=== PATIENT | male | born 1955 | race Caucasian/White ===

== ENCOUNTER 2016-08-16 08:55 | Emergency (ER) | payer MEDICARE, MEDICAID ==
[~2016-08-16 08:55] MED LIST: ACYC400T PO; CALC600T44 PO; CELE40TA PO; CLON1 PO; GEOD80CA PO; OMEG5CAP PO; SIMV80TA PO; VITA400C58 PO
[2016-08-16 09:02] VITALS: BP 140/82; PULSE 99; RESP 20; TEMP 98.9; O2SAT 100
[2016-08-16] MEDS ORDERED: CLON1TAB PO (09:16)
[2016-08-16] MEDS ORDERED: MULT1TAB84 PO (09:16)
[2016-08-16] MEDS ORDERED: GEOD80CA PO (09:16)
[2016-08-16] MEDS ORDERED: ZOCO10TA PO (09:16)
[2016-08-16] MEDS ORDERED: CELE40TA PO (09:16)
[2016-08-16] MEDS ORDERED: BACT800T5 PO (09:25)
--- NOTE | 2016-08-16 09:29 | PD ---
HPI Chief Complaint: Edema Time Seen by Provider: 09:13 Travel History International Travel<30 days: No Contact w/Intl Traveler<30days: No Traveled to known affect area: No History of Present Illness HPI This patient complains of redness and swelling in his legs. Duration 4 days. Severity is moderate. No fever. No alleviating factors. PFSH Past Medical History Anxiety: Yes Depression: Yes (pt on medication and states no depression) Heart Rhythm Problems: No Cancer: Yes (lymphoma ) Cardiovascular Problems: Yes Chemotherapy: Yes (2015) Chest Pain: No Congestive Heart Failure: No Cerebrovascular Accident: No Diabetes: No Diminished Hearing: No Endocrine: No Gastrointestinal Disorders: Yes (DIARRHEA (HX ONLY)) Genitourinary: No Hepatitis: No Hypertension: Yes Immune Disorder: No Implanted Vascular Access Dvce: Yes Musculoskeletal: No Neurologic: No Psychiatric: No Reproductive: No Respiratory: No Immunizations Current: No Migraines: No Radiation Therapy: No Seizures: No Thyroid Disease: No Past Surgical History Abdominal Surgery: No AICD: No Arteriovenous Shunt: No Body Medical Devices: port placement Cardiac Surgery: No Endocrine Surgery: No Eye Surgery: No Genitourinary Surgery: No Gynecologic Surgery: Yes Insulin Pump: No Joint Replacement: No Oral Surgery: No Pacemaker: No Thoracic Surgery: No Other Surgery: Yes (lateral sphincterotomy (anal area), Port Placement ) Social History Alcohol Use: No (Hx : ETOH abuse, Recovering Alcoholic ) Tobacco Use: No (quit more than 5 years ago ) Substance Use: No (Hx : Marijuana ) Allergies-Medications (Allergen,Severity, Reaction): Coded Allergies: Augmentin (Unverified Allergy, Unknown, 08/16/16) Keflex (Unverified Allergy, Unknown, 08/16/16) Reported Meds & Prescriptions Reported Meds & Active Scripts Active Reported Multivitamin Adults (Multiple Vitamins W/ Minerals) 1 Tab 1 Tab PO DAILY Zocor (Simvastatin) 10 Mg Tab 10 Mg PO HS Clonazepam 1 Mg Tab 1 Mg PO BID Geodon (Ziprasidone) 80 Mg Cap 80 Mg PO HS Celexa (Citalopram Hydrobromide) 40 Mg Tab 40 Mg PO HS Review of Systems General / Constitutional: No: Fever HENT: No: Headaches Cardiovascular: No: Chest Pain or Discomfort Physical Exam Narrative GASTROINTESTINAL: Abdomen soft, non-tender, nondistended. Positive bowel sounds. No hepato-splenomegaly, or palpable masses. No guarding. Psych: Normal mood and affect. Normal insight and judgment. Legs: Has some macular erythema and warmth of the feet and lower legs. One area of the right leg is some scant yellow honey crusting. No fluctuance or drainage Data Data Last Documented VS Vital Signs Date Time Temp Pulse Resp B/P Pulse Ox O2 Delivery O2 Flow Rate FiO2 08/16/16 09:12 20 08/16/16 09:02 98.9 99 140/82 100 MDM Medical Decision Making Medical Screen Exam Complete: Yes Emergency Medical Condition: Yes Medical Record Reviewed: Yes Differential Diagnosis Cellulitis, DVT, abscess Narrative Course I have reviewed the patient's electronic medical record. Reviewed his last oncology follow-up. History of B-cell lymphoma in remission. I reviewed his labs from 2 weeks ago showing normal renal and liver functions Presentation seems most consistent with lower extremity cellulitis. He is normal vital signs, afebrile. We'll give him 10 days of Bactrim. If he gets no improvement or worsens in 48 hours she should return Diagnosis Primary Impression: Cellulitis, leg Qualified Code: L03.119 - Cellulitis of lower extremity, unspecified laterality Additional Instructions: The patient was advised to follow up with their physician and return if they worsen. Recheck in 48 hours if no improvement Med/Other Pt SpecificInfo: Prescription(s) given Scripts Sulfamethoxazole-Trimethoprim (Bactrim DS)800-160 Mg Tab1 Tab PO BID #20 TAB Ref 0 Prov:Juan Wing MD 08/16/16 Disposition: 01 DISCHARGE HOME Condition: Stable Juan Wing MD Aug 16, 2016 09:29
== END 2016-08-16 09:39 | disposition home or self-care (01) ==
LOC: PHED 08:55
DX: L03.119 Cellulitis of unspecified part of limb (principal)
CPT/HCPCS: 99283

== ENCOUNTER 2017-05-12 10:09 | Emergency (ER) | payer MEDICARE, MEDICAID ==
[~2017-05-12] VITALS: Ht 172.7 cm; Wt 97.0 kg
[~2017-05-12 10:09] MED LIST changes: -ACYC400T PO; +BACT800T5 PO; -CALC600T44 PO; -CLON1 PO; +CLON1TAB PO; +MULT1TAB84 PO; -OMEG5CAP PO; -SIMV80TA PO; -VITA400C58 PO; +ZOCO10TA PO
[2017-05-12 10:25] VITALS: BP 137/77; PULSE 88; RESP 16; TEMP 98.8; O2SAT 99
[2017-05-12] MEDS ORDERED: KETOC2%T TOPICAL (10:55)
--- NOTE | 2017-05-12 11:01 | PD ---
HPI Chief Complaint: Skin Problem Time Seen by Provider: 10:31 Travel History International Travel<30 days: No Contact w/Intl Traveler<30days: No Traveled to known affect area: No History of Present Illness HPI This patient complains of cellulitis in his legs. He has chronic swelling in his legs. He's had that for about a year. He seen his doctor for but has no idea what was discussed. In the past has been on Lasix for that. He denies acute injury or fever. Symptoms severity is mild. No alleviating factors. He also complains of a rash on his face PFSH Past Medical History Bipolar Disorder: Yes Anxiety: Yes Depression: Yes (pt on medication and states no depression) Heart Rhythm Problems: No Cancer: Yes (lymphoma ) Cardiovascular Problems: Yes Chemotherapy: Yes (2015) Chest Pain: No Congestive Heart Failure: No Cerebrovascular Accident: No Diabetes: No Diminished Hearing: No Endocrine: No Gastrointestinal Disorders: Yes (DIARRHEA (HX ONLY)) Genitourinary: No Hepatitis: No Hypertension: Yes Immune Disorder: No Implanted Vascular Access Dvce: Yes (port right chest wall) Musculoskeletal: No Neurologic: No Psychiatric: No Reproductive: No Respiratory: No Immunizations Current: No Migraines: No Radiation Therapy: No Seizures: No Thyroid Disease: No Influenza Vaccination: No Past Surgical History Abdominal Surgery: No AICD: No Arteriovenous Shunt: No Body Medical Devices: port placement Cardiac Surgery: No Endocrine Surgery: No Eye Surgery: No Genitourinary Surgery: Yes (vasectomy) Gynecologic Surgery: Yes Insulin Pump: No Joint Replacement: No Oral Surgery: No Pacemaker: No Thoracic Surgery: No Other Surgery: Yes (lateral sphincterotomy (anal area), Port Placement right chest) Social History Alcohol Use: No (Hx : ETOH abuse, Recovering Alcoholic ) Tobacco Use: No (quit) Substance Use: No (DENIES) Allergies-Medications (Allergen,Severity, Reaction): Coded Allergies: amoxicillin (Unverified Allergy, Unknown, 05/12/17) cephalexin (Unverified Allergy, Unknown, 05/12/17) clavulanic acid (Unverified Allergy, Unknown, 05/12/17) Reported Meds & Prescriptions Reported Meds & Active Scripts Active Nizoral Topical Shampoo (Ketoconazole) 2% Sham 1 Applic TOPICAL 2XWEEK Apply to scalp Bactrim DS (Sulfamethoxazole-Trimethoprim) 800-160 Mg Tab 1 Tab PO BID Reported Multivitamin Adults (Multiple Vitamins W/ Minerals) 1 Tab 1 Tab PO DAILY Zocor (Simvastatin) 10 Mg Tab 10 Mg PO HS Clonazepam 1 Mg Tab 1 Mg PO BID Geodon (Ziprasidone) 80 Mg Cap 80 Mg PO HS Celexa (Citalopram Hydrobromide) 40 Mg Tab 40 Mg PO HS Review of Systems General / Constitutional: No: Fever HENT: No: Headaches Cardiovascular: No: Chest Pain or Discomfort Physical Exam Narrative Face: Patient has a separate dermatitis rash across the T-zone of his face GASTROINTESTINAL: Abdomen soft, non-tender, nondistended. Positive bowel sounds. No hepato-splenomegaly, or palpable masses. No guarding. NECK: Symmetrical appearance, midline trachea. No mass or crepitus. Thyroid without enlargement, tenderness, or mass. Legs: Has some symmetric edema for the midshin down. Some hyperpigmentation stasis is present. No evidence of cellulitis. Data Data Last Documented VS Vital Signs Date Time Temp Pulse Resp B/P (MAP) Pulse Ox O2 Delivery O2 Flow Rate FiO2 05/12/17 10:25 98.8 88 16 137/77 (97) 99 MDM Medical Decision Making Medical Screen Exam Complete: Yes Emergency Medical Condition: Yes Medical Record Reviewed: Yes Differential Diagnosis Leg edema, cellulitis, dermatitis Narrative Course I have reviewed the patient's electronic medical record. Patient has chronic leg edema with some hyperpigmentation stasis but no cellulitis. He does not need antibiotics. He does have seborrheic dermatitis and I wrote him a prescription for Nizoral shampoo to use twice weekly The patient was advised to follow up with their physician and return if they worsen. Recommend he elevate his legs and use low-sodium diet and wear knee-high compression stockings Diagnosis Primary Impression: Leg edema Additional Impressions: Seborrheic dermatitis Stasis dermatitis of both legs Additional Instructions: The patient was advised to follow up with their physician and return if they worsen. Use low-sodium diet Wear knee-high compression stockings Elevate legs Med/Other Pt SpecificInfo: Prescription(s) given Scripts Ketoconazole Topical Shampoo (Nizoral Topical Shampoo) 2% Sham 1 APPLIC TOPICAL 2XWEEK for Fungal Infection, #1 BOTTLE 0 Refills Apply to scalp Prov: Juan Wing MD 05/12/17 Disposition: 01 DISCHARGE HOME Condition: Stable Juan Wing MD May 12, 2017 11:01
== END 2017-05-12 11:13 | disposition home or self-care (01) ==
LOC: PHED 10:09
DX: I87.2 Venous insufficiency (chronic) (peripheral) (principal)
CPT/HCPCS: 99282